=== PATIENT | male | born 1990 | race American Indian/Alaskan Native ===

== ENCOUNTER 2020-01-19 05:37 | Emergency (ER) | payer BC ==
[2020-01-19 05:46] VITALS: BP 128/78
[2020-01-19] MEDS ORDERED: ONDANSETRON 4 MG/2 ML INJ IV ONE (08:48)
[2020-01-19] MEDS ORDERED: MORPHINE 4 MG/1 ML INJ IV ONE (08:48)
--- NOTE | 2020-01-19 08:48 | Emergency Department Report ---
ED General Adult HPI - General Chief complaint: Skin/Abscess/Foreign Body Stated complaint: POSS HEMORRHOIDS Time Seen by Provider: 01/19/20 08:13 Source: patient Mode of arrival: Ambulatory Limitations: No Limitations - History of Present Illness Initial comments: 30-year-old -[place] male patient with history of HIV presents with complaints of abscess to his buttocks x5 days. Patient states he is currently on antiretroviral medication and is compliant. He does not know his most recent CD4 count. He denies any fever/chills/sweats, constipation, hematochezia, or urinary symptoms. He rates his pain as a 10/10 in severity and describes it as throbbing and aching. Pain is worsening since onset. - Related Data Previous Rx's Medication Instructions Recorded Last Taken Type Acetaminophen/Codeine [Tylenol 1 tab PO Q6H PRN #8 tab 01/19/20 Unknown Rx /Codeine # 3 tab] Clindamycin [Clindamycin CAP] 300 mg PO Q6H 10 Days #40 cap 01/19/20 Unknown Rx Ibuprofen [Motrin 800 MG tab] 800 mg PO Q8HR PRN #21 tablet 01/19/20 Unknown Rx Allergies Allergy/AdvReac Type Severity Reaction Status Date / Time No Known Allergies Allergy Unverified 01/19/20 05:51 ED Review of Systems ROS: Stated complaint: POSS HEMORRHOIDS Other details as noted in HPI Constitutional: denies: chills, diaphoresis, fever, malaise, weakness ENT: denies: throat pain Respiratory: denies: shortness of breath Cardiovascular: denies: chest pain Gastrointestinal: denies: nausea, vomiting Genitourinary: denies: urgency, dysuria, frequency, hematuria, discharge, testicular pain, testicular mass Musculoskeletal: denies: back pain Skin: denies: rash, change in color Hematological/Lymphatic: denies: swollen glands ED Past Medical Hx - Past Medical History Previous Medical History?: Yes Hx HIV: Yes - Surgical History Past Surgical History?: No - Social History Smoking Status: Never Smoker Substance Use Type: None - Medications Home Medications: Home Medications Medication Instructions Recorded Confirmed Last Taken Type Acetaminophen/Codeine [Tylenol 1 tab PO Q6H PRN #8 tab 01/19/20 Unknown Rx /Codeine # 3 tab] Clindamycin [Clindamycin CAP] 300 mg PO Q6H 10 Days #40 cap 01/19/20 Unknown Rx Ibuprofen [Motrin 800 MG tab] 800 mg PO Q8HR PRN #21 tablet 01/19/20 Unknown Rx ED Physical Exam - General Limitations: No Limitations General appearance: alert, in no apparent distress - Head Head exam: Present: atraumatic, normocephalic - Eye Eye exam: Present: normal appearance - ENT ENT exam: Present: mucous membranes moist - Neck Neck exam: Present: normal inspection - Respiratory Respiratory exam: Present: normal lung sounds bilaterally. Absent: respiratory distress - Cardiovascular Cardiovascular Exam: Present: regular rate, normal rhythm - Rectal Rectal exam: Absent: hemorrhoids - exam: Present: normal inspection, other (Right perianal swelling and tenderness noted without surrounding cellulitis or drainage) ED Course Vital Signs 01/19/20 01/19/20 01/19/20 05:44 10:46 12:40 Temperature 99.6 F Pulse Rate 100 H 83 Respiratory 18 16 18 Rate Blood Pressure 128/78 O2 Sat by Pulse 99 98 Oximetry 01/19/20 01/19/20 01/19/20 12:44 13:10 13:20 Temperature 100.6 F H Pulse Rate Respiratory 18 18 Rate Blood Pressure O2 Sat by Pulse Oximetry 01/19/20 14:04 Temperature 99.6 F Pulse Rate Respiratory Rate Blood Pressure O2 Sat by Pulse Oximetry - I & D Perineum Type of Procedure: Simple Site: Perianal Blade Size: 11 I & D Procedure: betadine prep, sterile drapes applied, sterile dressing applied Progress: 4 cc of 1% lidocaine used to anesthetize area. 11 blade used to incise abscess. Copious purulent drainage was obtained from wound. Sample was sent for wound culture. Minimal bleeding occurred. Patient tolerated procedure well without any immediate complications. ED Medical Decision Making - Lab Data Result diagrams: 01/19/20 08:56 01/19/20 08:56 Lab Results 01/19/20 01/19/20 Range/Units 08:56 08:56 WBC 8.3 (4.5-11.0) K/mm3 RBC 4.27 (3.65-5.03) M/mm3 Hgb 13.6 (11.8-15.2) gm/dl Hct 38.4 (35.5-45.6) % MCV 90 (84-94) fl MCH 32 (28-32) pg MCHC 35 H (32-34) % RDW 12.9 L (13.2-15.2) % Plt Count 238 (140-440) K/mm3 Lymph % (Auto) 14.4 (13.4-35.0) % Gibson % (Auto) 7.8 H (0.0-7.3) % Eos % (Auto) 0.3 (0.0-4.3) % Baso % (Auto) 0.3 (0.0-1.8) % Lymph # (Auto) 1.2 (1.2-5.4) K/mm3 Gibson # (Auto) 0.6 (0.0-0.8) K/mm3 Eos # (Auto) 0.0 (0.0-0.4) K/mm3 Baso # (Auto) 0.0 (0.0-0.1) K/mm3 Seg Neutrophils % 77.2 H (40.0-70.0) % Seg Neutrophils # 6.4 (1.8-7.7) K/mm3 Sodium 137 (137-145) mmol/L Potassium 4.3 (3.6-5.0) mmol/L Chloride 100.6 (98-107) mmol/L Carbon Dioxide 31 H (22-30) mmol/L Anion Gap 10 mmol/L BUN 12 (9-20) mg/dL Creatinine 1.0 (0.8-1.3) mg/dL Estimated GFR > 60 ml/min BUN/Creatinine Ratio 12 % Glucose 108 H (75-100) mg/dL Calcium 9.5 (8.4-10.2) mg/dL Total Bilirubin 0.30 (0.1-1.2) mg/dL AST 33 (5-40) units/L ALT 27 (7-56) units/L Alkaline Phosphatase 98 (35-129) units/L Total Protein 7.4 (6.3-8.2) g/dL Albumin 4.0 (3.9-5) g/dL Albumin/Globulin Ratio 1.2 % - Radiology Data Radiology results: report reviewed CT PELVIS WITH CONTRAST INDICATION / CLINICAL INFORMATION: MAIN. TECHNIQUE: Axial CT images were obtained through the pelvis after 100 cc Omnipaque [address] scans at this location are performed using CT dose reduction for ALARA by means of automated exposure control. COMPARISON: None available. FINDINGS: GENITOURINARY: The bladder is moderately distended. Visualized ureters demonstrate no significant abnormality. GASTROINTESTINAL/MESENTERY: 3.4 x 3.1 x 3.7 cm right-sided perianal fluid c ollection. Visualized bowel demonstrates no inflammation or obstruction. No significant free fluid or free air. RETROPERITONEUM: No significant adenopathy. REPRODUCTIVE ORGANS: No significant abnormality. VASCULAR: No significant abnormality. SKELETAL SYSTEM: No significant abnormality. ADDITIONAL FINDINGS: None. IMPRESSION: 1. 3.7 cm right-sided perianal fluid collection concerning for abscess. Mild associated inflammatory change. - Medical Decision Making 30-year-old -[place] male patient with history of HIV presents with complaints of abscess to his buttocks x5 days. Patient states he is currently on antiretroviral medication and is compliant. He does not know his most recent CD4 count. He denies any fever/chills/sweats, constipation, hematochezia, or urinary symptoms. He rates his pain as a 10/10 in severity and describes it as throbbing and aching. Pain is worsening since onset. CT pelvis is negative for perirectal abscess or other complication. CBC shows normal white count. Incision and drainage performed with copious drainage obtained and sent for culture. Patient tolerated procedure well without any immediate complications. He is afebrile and non-tachycardic. Pain is controlled. Patient is stable for discharge home. Prescription for clindamycin given. Patient to follow-up with his PCP in 2 to 3 days. Discussed wound care and strict return precautions in detail with patient who verbalizes understanding.. Critical care attestation.: If time is entered above; I have spent that time in minutes in the direct care of this critically ill patient, excluding procedure time. ED Disposition Clinical Impression: Perianal abscess Disposition: DC- TO HOME OR SELFCARE Is pt being admited?: No Condition: Stable Instructions: Abscess Incision and Drainage (ED), Anorectal Abscess and Anal Fistula (ED) Prescriptions: Clindamycin [Clindamycin CAP] 300 mg PO Q6H 10 Days #40 cap Ibuprofen [Motrin 800 MG tab] 800 mg PO Q8HR PRN #21 tablet PRN Reason: Pain, Moderate (4-6) Acetaminophen/Codeine [Tylenol /Codeine # 3 tab] 1 tab PO Q6H PRN #8 tab PRN Reason: Pain , Severe (7-10) Referrals: ASHLEY BRITTON MD [Primary Care Provider] - 2-3 Days
[2020-01-19 09:08] LABS: Basophils % (Auto) 0.3 % (0.0-1.8); Eosinophils % (Auto) 0.3 % (0.0-4.3); Hematocrit 38.4 % (35.5-45.6); Hemoglobin 13.6 gm/dl (11.8-15.2); Lymphocytes # (Auto) 1.2 K/mm3 (1.2-5.4); Lymphocytes % (Auto) 14.4 % (13.4-35.0); Mean Corpuscular HGB Conc 35 % (32-34); Mean Corpuscular Volume 90 fl (84-94); Monocytes # (Auto) 0.6 K/mm3 (0.0-0.8); Monocytes % (Auto) 7.8 % (0.0-7.3); Platelet Count 238 K/mm3 (140-440); Red Blood Count 4.27 M/mm3 (3.65-5.03); Red Cell Distribution Width 12.9 % (13.2-15.2)
[2020-01-19 09:32] LABS: Alanine Aminotransferase 27 units/L (7-56); BUN/Creatinine Ratio 12; Blood Urea Nitrogen 12 mg/dL (9-20); Calcium 9.5 mg/dL (8.4-10.2); Hemolysis Index 12
--- NOTE | 2020-01-19 10:46 | Cat Scan Report ---
CT PELVIS WITH CONTRAST INDICATION / CLINICAL INFORMATION: MAIN. TECHNIQUE: Axial CT images were obtained through the pelvis after 100 cc Omnipaque [address] scan s at this location are performed using CT dose reduction for ALARA by means of automated exposure con trol. COMPARISON: None available. FINDINGS: GENITOURINARY: The bladder is moderately distended. Visualized ureters demonstrate no significant abn ormality. GASTROINTESTINAL/MESENTERY: 3.4 x 3.1 x 3.7 cm right-sided perianal fluid collection. Visualized benjamin l demonstrates no inflammation or obstruction. No significant free fluid or free air. RETROPERITONEUM: No significant adenopathy. REPRODUCTIVE ORGANS: No significant abnormality. VASCULAR: No significant abnormality. SKELETAL SYSTEM: No significant abnormality. ADDITIONAL FINDINGS: None. IMPRESSION: 1. 3.7 cm right-sided perianal fluid collection concerning for abscess. Mild associated inflammatory change. Signer Name: Mumtaz Santana MD Signed: 01/19/2020 10:42 AM Workstation Name: [id number]
[2020-01-19] MEDS ORDERED: LIDOCAINE (1%) 10 MG/1 ML VIAL 20 ML MDV INFILTRATI ONE (10:55)
[2020-01-19] MEDS ORDERED: KETOROLAC 30 MG/1 ML INJ IV ONE (12:33)
[2020-01-19] MEDS ORDERED: ACETAMINOPHEN 325 MG TAB PO ONE (13:19)
[2020-01-19] MEDS ORDERED: ACETAMINOPHEN 325 MG TAB ONE (13:20)
== END 2020-01-19 14:05 | disposition home or self-care (01) ==
LOC: ED 05:37
DX: K61.0 Anal abscess (principal)
CPT/HCPCS: 36415; 46050; 72193; 80053; 85025; 87076; 87116; 87186; 96374; 96375; 99284; J1885; J2270; J2405; Q9967